=== PATIENT | female | born 1970 | race Caucasian/White ===

== ENCOUNTER → 2017-06-01 | Outpatient (CLI) | payer OTHER ==
[~2017-06-01] VITALS: Ht 152.4 cm; Wt 77.1 kg
[~2017-06-01] MED LIST: ALLEGRA ALLERG180 MG PO; ANAPROX275 MG PO; CIPRO500 MG PO; CLARITIN-D 121 EACH PO; ELAVIL; FLONASE16 GM NS; LEVAQUIN500 MG PO; LEVAQUIN750 MG PO; PAMELOR25 MG; PLAQUINIL; PULMICORT1 MG/2 ML IH; SINGULAIR10 MG PO; ZITHROMAX TRI-500 MG PO; ZYRTEC10 MG PO
== END | disposition home or self-care (01) ==
LOC: PPHC 13:41
DX: B34.9 Viral infection, unspecified (principal); Z01.89 Encounter for other specified special examinations

== ENCOUNTER 2017-06-14 13:04 | Outpatient (CLI) | payer OTHER | END 2017-06-14 13:11 | disposition home or self-care (01) | LOC: MAMO-SONO 13:04 | DX: N60.19 Diffuse cystic mastopathy of unspecified breast (principal); Z12.31 Encounter for screening mammogram for malignant neoplasm of breast ==

== ENCOUNTER 2018-08-08 10:45 | Outpatient (CLI) | payer OTHER | END 2018-08-08 12:00 | disposition home or self-care (01) | LOC: LAB 10:45 | DX: J11.1 Influenza due to unidentified influenza virus with other respiratory manifestations (principal); A49.3 Mycoplasma infection, unspecified site ==

== ENCOUNTER 2018-10-11 12:50 | Outpatient (CLI) | payer OTHER | END 2018-10-11 13:26 | disposition home or self-care (01) | LOC: MAMO-SONO 12:50 | DX: Z12.31 Encounter for screening mammogram for malignant neoplasm of breast (principal) ==

== ENCOUNTER 2019-06-11 09:43 | Outpatient (CLI) | payer OTHER | END 2019-06-11 09:50 | disposition home or self-care (01) | LOC: LAB 09:43 | DX: J11.1 Influenza due to unidentified influenza virus with other respiratory manifestations (principal) ==

== ENCOUNTER 2019-07-10 07:43 | Emergency (ER) | payer OTHER ==
[~2019-07-10] VITALS: Ht 160 cm; Wt 81.6 kg
== END 2019-07-10 11:31 | disposition home or self-care (01) ==
LOC: ER 07:43
DX: B34.9 Viral infection, unspecified (principal)

== ENCOUNTER 2020-01-16 12:33 | Outpatient (CLI) | payer OTHER | END 2020-01-16 12:35 | disposition home or self-care (01) | LOC: MAMO-SONO 12:33 | PROVIDERS: ATTEND Obstetrics & Gynecology Maternal & Fetal Medicine | DX: Z12.31 Encounter for screening mammogram for malignant neoplasm of breast (principal); N63.10 Unspecified lump in the right breast, unspecified quadrant; N63.20 Unspecified lump in the left breast, unspecified quadrant; N64.4 Mastodynia; N60.11 Diffuse cystic mastopathy of right breast ==

== ENCOUNTER → 2020-01-23 | Outpatient (CLI) | payer OTHER | END | disposition home or self-care (01) | LOC: PPH VACUNA 09:00 | DX: Z23 Encounter for immunization (principal) ==

== ENCOUNTER → 2020-05-28 | Outpatient (CLI) | payer OTHER | END | disposition home or self-care (01) | LOC: OFIC 805 11:15 | PROVIDERS: ATTEND Otolaryngology | DX: R09.81 Nasal congestion (principal); J30.89 Other allergic rhinitis; J32.8 Other chronic sinusitis ==

== ENCOUNTER 2020-06-25 08:59 | Outpatient (CLI) | payer OTHER | END 2020-06-25 15:02 | disposition home or self-care (01) | LOC: OFIC 805 08:59 | PROVIDERS: ATTEND Otolaryngology | DX: J32.8 Other chronic sinusitis (principal); J30.89 Other allergic rhinitis; R09.81 Nasal congestion ==

== ENCOUNTER 2020-06-26 12:43 | Outpatient (CLI) | payer OTHER | END 2020-06-26 13:00 | disposition home or self-care (01) | LOC: TOM 12:43 | PROVIDERS: ATTEND Otolaryngology | DX: J30.89 Other allergic rhinitis (principal); J32.0 Chronic maxillary sinusitis ==

== ENCOUNTER 2020-07-15 10:07 | Outpatient (CLI) | payer OTHER | END 2020-07-15 10:12 | disposition home or self-care (01) | LOC: LAB 10:07 | PROVIDERS: ATTEND Internal Medicine Infectious Disease | DX: N39.0 Urinary tract infection, site not specified (principal) ==

== ENCOUNTER 2020-08-18 12:17 | Outpatient (CLI) | payer OTHER ==
[2020-10-14] MEDS ORDERED: DICLOFENAC POTA50 MG PO (13:49)
[2020-10-14] MEDS ORDERED: SKELAXIN800 MG PO (13:50)
== END 2020-08-18 12:19 | disposition home or self-care (01) ==
LOC: LAB 12:17
PROVIDERS: ATTEND Urology
DX: N39.0 Urinary tract infection, site not specified (principal)

== ENCOUNTER 2020-08-20 08:59 | Outpatient (CLI) | payer OTHER ==
[2020-10-14] MEDS ORDERED: DICLOFENAC POTA50 MG PO (13:49)
[2020-10-14] MEDS ORDERED: SKELAXIN800 MG PO (13:50)
== END 2020-08-20 14:46 | disposition home or self-care (01) ==
LOC: SONOGRAMA 08:59
PROVIDERS: ATTEND Urology
DX: N39.0 Urinary tract infection, site not specified (principal)

== ENCOUNTER 2020-12-18 05:55 | Day surgery (SDC) | payer OTHER ==
[~2020-12-18 05:55] MED LIST changes: +DICLOFENAC POTA50 MG PO; +SKELAXIN800 MG PO
== END 2020-12-18 09:40 | disposition home or self-care (01) ==
LOC: AMB-ENDOS 05:55
PROVIDERS: ATTEND Colon & Rectal Surgery
DX: K62.89 Other specified diseases of anus and rectum (principal); K64.1 Second degree hemorrhoids; Z20.822 Contact with and (suspected) exposure to COVID-19

== ENCOUNTER 2021-01-29 16:00 | Outpatient (CLI) | payer OTHER | END 2021-01-29 16:30 | disposition home or self-care (01) | LOC: PPH VACUNA 16:00 | PROVIDERS: ATTEND Emergency Medicine Pediatric Emergency Medicine | DX: Z23 Encounter for immunization (principal) ==

== ENCOUNTER 2021-02-04 10:45 | Outpatient (CLI) | payer OTHER | END 2021-02-04 10:47 | disposition home or self-care (01) | LOC: PPH VACUNA 10:45 | PROVIDERS: ATTEND Emergency Medicine Pediatric Emergency Medicine | DX: Z23 Encounter for immunization (principal) ==

== ENCOUNTER 2021-02-26 12:04 | Outpatient (CLI) | payer OTHER | END 2021-02-26 12:17 | disposition home or self-care (01) | LOC: MAMO-SONO 12:04 | PROVIDERS: ATTEND Radiology Diagnostic Radiology | DX: R92.1 Mammographic calcification found on diagnostic imaging of breast (principal); Z12.31 Encounter for screening mammogram for malignant neoplasm of breast ==

== ENCOUNTER 2021-03-04 08:21 | Inpatient (IN) | payer OTHER ==
[~2021-03-04] VITALS: Ht 160 cm; Wt 61.0 kg
[2021-03-04] MEDS ORDERED: TRANXENE T-TAB7.5 MG PO (08:51)
[2021-03-04] MEDS ORDERED: FLUVOXAMINE MAL50 MG PO (08:52)
[2021-03-04] MEDS ORDERED: HYDROXYCHLOROQ200 MG PO (13:06)
[2021-03-04] MEDS ORDERED: ZYRTEC10 MG PO (13:08)
== END 2021-03-09 13:17 | disposition home or self-care (01) | DRG 690 ==
LOC: ER 08:21 → SEC-K 12:47 → SURH 15:48
PROVIDERS: ADMIT Internal Medicine; ATTEND Internal Medicine
PROC: 8E0ZXY6 Isolation (ICD-10-PCS; principal; 2021-03-04)
PROC: BW4GZZZ Ultrasonography of Pelvic Region (ICD-10-PCS; 2021-03-05)
DX: N39.0 Urinary tract infection, site not specified (principal); Z16.12 Extended spectrum beta lactamase (ESBL) resistance; B96.29 Other Escherichia coli [E. coli] as the cause of diseases classified elsewhere; Z20.822 Contact with and (suspected) exposure to COVID-19; E78.5 Hyperlipidemia, unspecified

== ENCOUNTER 2021-03-29 08:37 | Outpatient (CLI) | payer OTHER ==
[~2021-03-29 08:37] MED LIST changes: +FLUVOXAMINE MAL50 MG PO; +HYDROXYCHLOROQ200 MG PO; +TRANXENE T-TAB7.5 MG PO
== END 2021-03-29 08:38 | disposition home or self-care (01) ==
LOC: LAB 08:37
PROVIDERS: ATTEND Emergency Medicine
DX: N39.0 Urinary tract infection, site not specified (principal)

== ENCOUNTER 2021-05-27 06:59 | Outpatient (CLI) | payer OTHER | END 2021-05-27 07:00 | disposition home or self-care (01) | LOC: LAB 06:59 | PROVIDERS: ATTEND Internal Medicine Rheumatology | DX: M32.19 Other organ or system involvement in systemic lupus erythematosus (principal) ==

== ENCOUNTER 2021-06-09 12:47 | Outpatient (CLI) | payer OTHER | END 2021-06-09 12:52 | disposition home or self-care (01) | LOC: LAB 12:47 | PROVIDERS: ATTEND Internal Medicine | DX: N39.0 Urinary tract infection, site not specified (principal) ==

== ENCOUNTER 2021-09-03 11:56 | Outpatient (CLI) | payer OTHER | END 2021-09-03 12:00 | disposition home or self-care (01) | LOC: SONOGRAMA 11:56 | PROVIDERS: ATTEND Obstetrics & Gynecology Maternal & Fetal Medicine | DX: N60.11 Diffuse cystic mastopathy of right breast (principal); N60.19 Diffuse cystic mastopathy of unspecified breast; N63.0 Unspecified lump in unspecified breast ==

== ENCOUNTER → 2021-09-07 15:02 | Outpatient (CLI) | payer OTHER | END | disposition home or self-care (01) | LOC: LAB 15:02 | PROVIDERS: ATTEND Urology | DX: N30.00 Acute cystitis without hematuria (principal) ==

== ENCOUNTER 2021-09-29 07:42 | Outpatient (CLI) | payer OTHER | END 2021-09-29 14:14 | disposition home or self-care (01) | LOC: LAB 07:42 | PROVIDERS: ATTEND Urology | DX: N30.00 Acute cystitis without hematuria (principal) ==

== ENCOUNTER 2021-12-23 10:10 | Outpatient (CLI) | payer OTHER | END 2021-12-23 10:16 | disposition home or self-care (01) | LOC: LAB 10:10 | PROVIDERS: ATTEND Urology | DX: N30.00 Acute cystitis without hematuria (principal) ==

== ENCOUNTER 2022-01-28 09:07 | Outpatient (CLI) | payer OTHER | END 2022-01-28 09:13 | disposition home or self-care (01) | LOC: LAB 09:07 | PROVIDERS: ATTEND Internal Medicine Cardiovascular Disease | DX: Z03.89 Encounter for observation for other suspected diseases and conditions ruled out (principal) ==

== ENCOUNTER 2022-02-04 08:00 | Outpatient (CLI) | payer OTHER | END 2022-02-04 08:05 | disposition home or self-care (01) | LOC: PPH VACUNA 08:00 | PROVIDERS: ATTEND Emergency Medicine Pediatric Emergency Medicine | DX: Z23 Encounter for immunization (principal) ==

== ENCOUNTER 2022-04-01 12:42 | Outpatient (CLI) | payer OTHER | END 2022-04-01 12:43 | disposition home or self-care (01) | LOC: LAB 12:42 | PROVIDERS: ATTEND Urology | DX: N30.00 Acute cystitis without hematuria (principal) ==

== ENCOUNTER 2022-04-04 10:59 | Outpatient (CLI) | payer OTHER | END 2022-04-04 11:14 | disposition home or self-care (01) | LOC: SONOGRAMA 10:59 | PROVIDERS: ATTEND Surgery | DX: N60.11 Diffuse cystic mastopathy of right breast (principal); N60.12 Diffuse cystic mastopathy of left breast ==

== ENCOUNTER 2022-05-31 13:31 | Outpatient (CLI) | payer OTHER | END 2022-05-31 13:36 | disposition home or self-care (01) | LOC: LAB 13:31 | PROVIDERS: ATTEND Obstetrics & Gynecology Gynecology | DX: N39.0 Urinary tract infection, site not specified (principal) ==

== ENCOUNTER 2022-07-08 08:20 | Outpatient (CLI) | payer OTHER | END 2022-07-08 08:34 | disposition home or self-care (01) | LOC: TOM 08:20 | PROVIDERS: ATTEND Obstetrics & Gynecology Gynecology | DX: N20.0 Calculus of kidney (principal); R10.9 Unspecified abdominal pain ==

== ENCOUNTER 2022-09-09 13:27 | Emergency (ER) | payer OTHER ==
[~2022-09-09] VITALS: Ht 160 cm; Wt 75.3 kg
[2022-09-09] MEDS ORDERED: CLONAZEPAM0.5 M1 PO (13:53)
== END 2022-09-09 15:44 | disposition home or self-care (01) ==
LOC: ER 13:27
DX: I10 Essential (primary) hypertension (principal); F32.89 Other specified depressive episodes; Z88.2 Allergy status to sulfonamides

== ENCOUNTER 2022-10-12 07:48 | Outpatient (CLI) | payer OTHER ==
[~2022-10-12 07:48] MED LIST changes: +CLONAZEPAM0.5 M1 PO
== END 2022-10-12 07:54 | disposition home or self-care (01) ==
LOC: LAB 07:48
PROVIDERS: ATTEND Internal Medicine
DX: F42.9 Obsessive-compulsive disorder, unspecified (principal); N39.0 Urinary tract infection, site not specified; Z13.1 Encounter for screening for diabetes mellitus; Z13.220 Encounter for screening for lipoid disorders; Z13.29 Encounter for screening for other suspected endocrine disorder; E55.9 Vitamin D deficiency, unspecified; M33.19 Other dermatomyositis with other organ involvement; M32.9 Systemic lupus erythematosus, unspecified

== ENCOUNTER 2023-01-06 08:30 | Outpatient (CLI) | payer OTHER | END 2023-01-06 08:40 | disposition home or self-care (01) | LOC: PPH VACUNA 08:30 | PROVIDERS: ATTEND Emergency Medicine Pediatric Emergency Medicine | DX: Z23 Encounter for immunization (principal) ==

== ENCOUNTER 2023-03-06 07:14 | Outpatient (CLI) | payer OTHER ==
[2023-03-06 08:24] LABS: HEMATOCRIT 38.6 % (36.0-45.00); HEMOGLOBIN 13.1 g/dL (12.0-15.00); MEAN CELL VOLUME 81.9 fL (80.00-100.00); MEAN CORPUSCULAR HEMOGLOBIN 27.8 pg (27.00-32.0); PLATELET COUNT 317 K/uL (150-450); RED BLOOD COUNT 4.72 M/uL (4.00-6.00); RED CELL DISTRIBUTION WIDTH 14.2 % (11.5-14.5)
[2023-03-06 08:33] LABS: ERYTHROCYTE SEDIMENTATION RATE 19 mm/hr
[2023-03-06 08:47] LABS: URINE APPEARANCE Cloudy; URINE BILIRRUBIN Negative (NEGATIVE); URINE COLOR Yellow; URINE GLUCOSE Negative (NEGATIVE); URINE LEUKOCYTE Small; URINE NITRATE Positive; URINE PROTEIN Negative (NEGATIVE); URINE UROBILINOGEN 0.2 E.U./dl
[2023-03-06 08:51] LABS: URINE EPITHELIAL CELLS 26.4 uL (0.0-38.8); URINE RBC 54.8 uL (0.0-20.8); URINE WBC 22.7 uL (0.0-23.2)
[2023-03-06 09:06] LABS: URINE BACTERIA > 9821.2 uL (0.0-1933); URINE BLOOD TRACE
[2023-03-06 09:34] LABS: ALBUMIN 3.6 gm/dL (3.4-5.0); BILIRUBIN TOTAL 0.72 mg/dL (0.3-1.2); CALCIUM 8.7 mg/dL (8.5-10.1); CHOL HDL RATIO 4.8 (0-5.0); CREATININE SERUM 0.88 mg/dL (0.55-1.02); FREE TRIODOTIRONINE 2.38 pg/ml (2.18-3.98); GFR 67.22; GLOBULINA 3.4 G/DL (2.4-3.5); POTASSIUM 3.99 mEq/L (3.5-5.1); T4 FREE 1.08 NG/ML (0.76-1.46)
[2023-03-06 09:36] LABS: TSH 0.82 uIU/mL (0.358-3.74)
[2023-03-06 09:49] LABS: C-REACTIVE PROTEIN 0.39 MG/DL (0.00-0.29)
== END 2023-03-06 07:16 | disposition home or self-care (01) ==
LOC: LAB 07:14
PROVIDERS: ATTEND Internal Medicine
DX: N39.0 Urinary tract infection, site not specified (principal); E55.9 Vitamin D deficiency, unspecified; M32.19 Other organ or system involvement in systemic lupus erythematosus; F42.9 Obsessive-compulsive disorder, unspecified; Z88.2 Allergy status to sulfonamides

== ENCOUNTER 2023-06-12 07:24 | Outpatient (CLI) | payer OTHER ==
[2023-06-12 08:04] LABS: HEMATOCRIT 39.9 % (36.0-45.00); HEMOGLOBIN 13.7 g/dL (12.0-15.00); MEAN CELL VOLUME 83.4 fL (80.00-100.00); MEAN CORPUSCULAR HEMOGLOBIN 28.7 pg (27.00-32.0); MEAN CORPUSCULAR HGB CONC 34.5 g/dl (32.0-36.0); PLATELET COUNT 319 K/uL (150-450); RED BLOOD COUNT 4.78 M/uL (4.00-6.00); RED CELL DISTRIBUTION WIDTH 14.1 % (11.5-14.5)
[2023-06-12 08:06] LABS: PH,URINE 6.5 (5.0-8.0); URINE APPEARANCE Cloudy; URINE BILIRRUBIN Negative (NEGATIVE); URINE BLOOD Small; URINE COLOR Yellow; URINE GLUCOSE Negative (NEGATIVE); URINE LEUKOCYTE Large; URINE NITRATE Negative; URINE PROTEIN Negative (NEGATIVE); URINE UROBILINOGEN 0.2 E.U./dl
[2023-06-12 08:08] LABS: URINE EPITHELIAL CELLS 31.6 uL (0.0-38.8); URINE RBC 54.3 uL (0.0-20.8); URINE WBC 276.3 uL (0.0-23.2)
[2023-06-12 08:29] LABS: URINE BACTERIA > 9821.5 uL (0.0-1933)
[2023-06-12 08:30] LABS: ERYTHROCYTE SEDIMENTATION RATE 15 mm/hr
[2023-06-12 08:33] LABS: URINE EPITHELIAL CELLS 0-4 /HPF
[2023-06-12 08:55] LABS: ALKALINE PHOSPHATASE 77 U/L (50-136); ALT/SGPT 21 U/L (12-78); ANION GAP 7 (10.0-20.0); AST/SGOT 16 U/L (15-37); BILIRUBIN TOTAL 0.56 mg/dL (0.3-1.2); BLOOD UREA NITROGEN 15 mg/dL (7-18); BUN CREA RATIO 17 (7.0-25.0); CALCIUM 9.4 mg/dL (8.5-10.1); CARBON DIOXIDE 30 mEq/L (21-32); CHLORIDE 107 mmol/L (98-107); CREATININE SERUM 0.89 mg/dL (0.55-1.02); FREE TRIODOTIRONINE 2.41 pg/ml (2.18-3.98); GFR 66.35; GLOBULINA 3.3 G/DL (2.4-3.5); GLUCOSE FASTING 104 mg/dL (65-100); HDL 53 mg/dl (40-60); OSMOLALITY SERUM 281 MOSM/KG (275-295); POTASSIUM 4.19 mEq/L (3.5-5.1); SODIUM 140 mmol/L (136-145); T4 TOTAL 10.67 UG/DL (4.8-13.9); TOTAL PROTEIN 7.3 gm/dL (6.4-8.2); TRIGLYCERIDES 97 mg/dL (0-150); VLDL 19 (0-39)
[2023-06-12 08:57] LABS: C-REACTIVE PROTEIN < 0.29 MG/DL (0.00-0.29); CHOL HDL RATIO 4.9 (0-5.0); CHOLESTEROL 258 mg/dL (0-200); LDL 186 mg/dl (0-130)
[2023-06-13 10:11] LABS: COMPLEMENT C3 135 mg/dL (82-167); COMPLEMENT C4 22 mg/dL (12-38)
[2023-06-13 16:07] LABS: DNA AB DOUBLE STRABDED < 1 IU/mL (0-9)
== END 2023-06-12 07:25 | disposition home or self-care (01) ==
LOC: LAB 07:24
PROVIDERS: ATTEND Internal Medicine
DX: M32.19 Other organ or system involvement in systemic lupus erythematosus (principal); R76.0 Raised antibody titer; F42.9 Obsessive-compulsive disorder, unspecified; N39.0 Urinary tract infection, site not specified; E78.9 Disorder of lipoprotein metabolism, unspecified; E03.9 Hypothyroidism, unspecified

== ENCOUNTER 2023-12-18 07:26 | Outpatient (CLI) | payer OTHER ==
[2023-12-18 08:06] LABS: HEMATOCRIT 38.2 % (36.0-45.00); MEAN CELL VOLUME 83.5 fL (80.00-100.00); MEAN CORPUSCULAR HEMOGLOBIN 28.4 pg (27.00-32.0); PLATELET COUNT 317 K/uL (150-450); RED BLOOD COUNT 4.57 M/uL (4.00-6.00); RED CELL DISTRIBUTION WIDTH 13.9 % (11.5-14.5)
[2023-12-18 08:14] LABS: ERYTHROCYTE SEDIMENTATION RATE 21 mm/hr
[2023-12-18 08:59] LABS: URINE APPEARANCE Cloudy; URINE BILIRRUBIN Negative (NEGATIVE); URINE BLOOD NHT; URINE COLOR Yellow; URINE GLUCOSE Negative (NEGATIVE); URINE KETONE Negative (NEGATIVE); URINE LEUKOCYTE Moderate; URINE NITRATE Positive; URINE PROTEIN Negative (NEGATIVE); URINE UROBILINOGEN 0.2 E.U./dl
[2023-12-18 09:03] LABS: URINE EPITHELIAL CELLS 21.4 uL (0.0-38.8); URINE RBC 49.6 uL (0.0-20.8); URINE WBC 539.8 uL (0.0-23.2)
[2023-12-18 09:18] LABS: URINE BACTERIA > 9821 uL (0.0-1933)
[2023-12-18 09:32] LABS: ALBUMIN 3.8 gm/dL (3.4-5.0); ALKALINE PHOSPHATASE 74 U/L (50-136); ALT/SGPT 18 U/L (12-78); ANION GAP 9 (10.0-20.0); AST/SGOT 15 U/L (15-37); BILIRUBIN TOTAL 0.62 mg/dL (0.3-1.2); BLOOD UREA NITROGEN 10 mg/dL (7-18); BUN CREA RATIO 13 (7.0-25.0); CARBON DIOXIDE 27 mEq/L (21-32); CHLORIDE 110 mmol/L (98-107); CREATININE SERUM 0.78 mg/dL (0.55-1.02); FREE TRIODOTIRONINE 2.46 pg/ml (2.18-3.98); GFR 76.96; GLOBULINA 3.4 G/DL (2.4-3.5); GLUCOSE FASTING 100 mg/dL (65-100); HDL 54 mg/dl (40-60); OSMOLALITY SERUM 282 MOSM/KG (275-295); POTASSIUM 4.11 mEq/L (3.5-5.1); SODIUM 142 mmol/L (136-145); T4 TOTAL 10.27 UG/DL (4.8-13.9); TOTAL PROTEIN 7.2 gm/dL (6.4-8.2); TRIGLYCERIDES 125 mg/dL (0-150); VLDL 25 (0-39)
[2023-12-18 09:36] LABS: CHOL HDL RATIO 4.9 (0-5.0); LDL 184 mg/dl (0-130)
[2023-12-18 09:37] LABS: C-REACTIVE PROTEIN < 0.29 MG/DL (0.00-0.29); CHOLESTEROL 263 mg/dL (0-200)
== END 2023-12-18 07:30 | disposition home or self-care (01) ==
LOC: LAB 07:26
PROVIDERS: ATTEND Internal Medicine
DX: N39.0 Urinary tract infection, site not specified (principal); R76.0 Raised antibody titer; Z13.1 Encounter for screening for diabetes mellitus; Z13.220 Encounter for screening for lipoid disorders; Z13.29 Encounter for screening for other suspected endocrine disorder; F42.9 Obsessive-compulsive disorder, unspecified; E78.9 Disorder of lipoprotein metabolism, unspecified; E03.9 Hypothyroidism, unspecified

== ENCOUNTER 2023-12-19 07:23 | Outpatient (CLI) | payer OTHER ==
[2023-12-19 08:25] LABS: HEMATOCRIT 37.3 % (36.0-45.00); HEMOGLOBIN 12.8 g/dL (12.0-15.00); MEAN CELL VOLUME 82.4 fL (80.00-100.00); MEAN CORPUSCULAR HEMOGLOBIN 28.2 pg (27.00-32.0); MEAN CORPUSCULAR HGB CONC 34.2 g/dl (32.0-36.0); PLATELET COUNT 317 K/uL (150-450); RED BLOOD COUNT 4.53 M/uL (4.00-6.00); RED CELL DISTRIBUTION WIDTH 14.2 % (11.5-14.5)
[2023-12-19 09:04] LABS: ALBUMIN 3.9 gm/dL (3.4-5.0); BILIRUBIN TOTAL 0.67 mg/dL (0.3-1.2); CALCIUM 9.1 mg/dL (8.5-10.1); CREATININE SERUM 0.79 mg/dL (0.55-1.02); GFR 75.84; GLOBULINA 3.4 G/DL (2.4-3.5); POTASSIUM 4.03 mEq/L (3.5-5.1); TOTAL PROTEIN 7.3 gm/dL (6.4-8.2)
== END 2023-12-19 07:30 | disposition home or self-care (01) ==
LOC: LAB 07:23
PROVIDERS: ATTEND Internal Medicine
DX: N39.0 Urinary tract infection, site not specified (principal)

== ENCOUNTER 2023-12-25 11:50 | Outpatient (CLI) | payer OTHER | END 2023-12-25 15:22 | disposition home or self-care (01) | LOC: LAB 11:50 | DX: Z20.828 Contact with and (suspected) exposure to other viral communicable diseases (principal); J11.1 Influenza due to unidentified influenza virus with other respiratory manifestations ==

== ENCOUNTER 2024-01-10 07:46 | Outpatient (CLI) | payer OTHER | END 2024-01-10 11:44 | disposition home or self-care (01) | LOC: LAB 07:46 | DX: J11.1 Influenza due to unidentified influenza virus with other respiratory manifestations (principal); Z20.828 Contact with and (suspected) exposure to other viral communicable diseases ==

== ENCOUNTER 2024-01-10 10:40 | Outpatient (CLI) | payer OTHER | END 2024-01-10 10:44 | disposition home or self-care (01) | LOC: LAB 10:40 | PROVIDERS: ATTEND Internal Medicine | DX: J06.9 Acute upper respiratory infection, unspecified (principal) ==

== ENCOUNTER 2024-02-19 13:59 | Outpatient (CLI) | payer OTHER | END 2024-02-19 14:00 | disposition home or self-care (01) | LOC: LAB 13:59 | PROVIDERS: ATTEND Preventive Medicine Occupational Medicine | DX: J11.1 Influenza due to unidentified influenza virus with other respiratory manifestations (principal); Z20.828 Contact with and (suspected) exposure to other viral communicable diseases ==

== ENCOUNTER 2024-03-11 07:39 | Outpatient (CLI) | payer OTHER ==
[2024-03-11 08:25] LABS: HEMATOCRIT 39.5 % (36.0-45.00); HEMOGLOBIN 13.2 g/dL (12.0-15.00); MEAN CELL VOLUME 84.2 fL (80.00-100.00); MEAN CORPUSCULAR HEMOGLOBIN 28.2 pg (27.00-32.0); MEAN CORPUSCULAR HGB CONC 33.5 g/dl (32.0-36.0); PLATELET COUNT 300 K/uL (150-450); RED BLOOD COUNT 4.69 M/uL (4.00-6.00); RED CELL DISTRIBUTION WIDTH 14.4 % (11.5-14.5)
[2024-03-11 08:28] LABS: URINE APPEARANCE Clear; URINE BILIRRUBIN Negative (NEGATIVE); URINE BLOOD Small; URINE COLOR Yellow; URINE GLUCOSE Negative (NEGATIVE); URINE KETONE Negative (NEGATIVE); URINE LEUKOCYTE Trace; URINE NITRATE Negative; URINE PROTEIN Negative (NEGATIVE); URINE UROBILINOGEN 0.2 E.U./dl
[2024-03-11 08:32] LABS: ERYTHROCYTE SEDIMENTATION RATE 7 mm/hr
[2024-03-11 08:35] LABS: URINE BACTERIA 337.6 uL (0.0-1933); URINE EPITHELIAL CELLS 37.5 uL (0.0-38.8); URINE RBC 11.1 uL (0.0-20.8)
[2024-03-11 08:37] LABS: URINE CAST 0.15 uL (0.0-1.40)
[2024-03-11 09:07] LABS: ALBUMIN 3.7 gm/dL (3.4-5.0); ALKALINE PHOSPHATASE 72 U/L (50-136); ALT/SGPT 19 U/L (12-78); ANION GAP 9 (10.0-20.0); AST/SGOT 14 U/L (15-37); BILIRUBIN TOTAL 0.36 mg/dL (0.3-1.2); BLOOD UREA NITROGEN 13 mg/dL (7-18); BUN CREA RATIO 16 (7.0-25.0); CARBON DIOXIDE 28 mEq/L (21-32); CHLORIDE 110 mmol/L (98-107); GFR 74.75; GLOBULINA 3.3 G/DL (2.4-3.5); GLUCOSE FASTING 95 mg/dL (65-100); HDL 65 mg/dl (40-60); OSMOLALITY SERUM 285 MOSM/KG (275-295); POTASSIUM 3.99 mEq/L (3.5-5.1); SODIUM 143 mmol/L (136-145); T4 TOTAL 11.59 UG/DL (4.8-13.9); TRIGLYCERIDES 78 mg/dL (0-150); VLDL 15 (0-39)
[2024-03-11 09:08] LABS: C-REACTIVE PROTEIN < 0.29 MG/DL (0.00-0.29); CHOLESTEROL 257 mg/dL (0-200); LDL 176 mg/dl (0-130)
== END 2024-03-11 07:40 | disposition home or self-care (01) ==
LOC: LAB 07:39
PROVIDERS: ATTEND Internal Medicine
DX: N39.0 Urinary tract infection, site not specified (principal); Z13.29 Encounter for screening for other suspected endocrine disorder; Z13.220 Encounter for screening for lipoid disorders; Z13.1 Encounter for screening for diabetes mellitus; R76.0 Raised antibody titer

== ENCOUNTER 2024-07-03 09:13 | Outpatient (CLI) | payer OTHER ==
[2024-07-03 10:12] LABS: HEMATOCRIT 38.7 % (36.0-45.00); HEMOGLOBIN 13.1 g/dL (12.0-15.00); MEAN CELL VOLUME 83.7 fL (80.00-100.00); MEAN CORPUSCULAR HEMOGLOBIN 28.4 pg (27.00-32.0); MEAN CORPUSCULAR HGB CONC 33.9 g/dl (32.0-36.0); PLATELET COUNT 301 K/uL (150-450); RED BLOOD COUNT 4.63 M/uL (4.00-6.00); RED CELL DISTRIBUTION WIDTH 13.8 % (11.5-14.5)
[2024-07-03 10:58] LABS: ALBUMIN 3.7 gm/dL (3.4-5.0); BILIRUBIN TOTAL 0.29 mg/dL (0.3-1.2); CALCIUM 9.2 mg/dL (8.5-10.1); CREATININE SERUM 0.7 mg/dL (0.55-1.02); GFR 87.2; GLOBULINA 3.2 G/DL (2.4-3.5); POTASSIUM 4.32 mEq/L (3.5-5.1); TOTAL PROTEIN 6.9 gm/dL (6.4-8.2)
[2024-07-03 11:26] LABS: MYCOPLASMA PNEUMONIAE IGM NON REACTIVE (NO REACTIVE)
== END 2024-07-03 13:30 | disposition home or self-care (01) ==
LOC: LAB 09:13
PROVIDERS: ATTEND Internal Medicine
DX: J11.1 Influenza due to unidentified influenza virus with other respiratory manifestations (principal); R50.9 Fever, unspecified; Z20.822 Contact with and (suspected) exposure to COVID-19; U07.1 COVID-19

== ENCOUNTER 2024-07-23 07:46 | Outpatient (CLI) | payer OTHER ==
[2024-07-23 08:30] LABS: PH,URINE 5.5 (5.0-8.0); URINE BILIRRUBIN Negative (NEGATIVE); URINE BLOOD Trace; URINE COLOR Yellow; URINE GLUCOSE Negative (NEGATIVE); URINE KETONE Negative (NEGATIVE); URINE LEUKOCYTE Moderate; URINE NITRATE Negative; URINE PROTEIN Negative (NEGATIVE); URINE UROBILINOGEN 0.2 E.U./dl
[2024-07-23 08:34] LABS: HEMATOCRIT 39.4 % (36.0-45.00); HEMOGLOBIN 13.2 g/dL (12.0-15.00); MEAN CELL VOLUME 83.7 fL (80.00-100.00); MEAN CORPUSCULAR HGB CONC 33.4 g/dl (32.0-36.0); PLATELET COUNT 308 K/uL (150-450); RED BLOOD COUNT 4.71 M/uL (4.00-6.00); URINE EPITHELIAL CELLS 10.9 uL (0.0-38.8); URINE RBC 5.1 uL (0.0-20.8); URINE WBC 177.4 uL (0.0-23.2)
[2024-07-23 08:37] LABS: URINE BACTERIA > 9821.5 uL (0.0-1933); URINE CAST 0.29 uL (0.0-1.40)
[2024-07-23 08:39] LABS: URINE APPEARANCE Clear
[2024-07-23 09:36] LABS: ALBUMIN 3.9 gm/dL (3.4-5.0); BILIRUBIN TOTAL 0.48 mg/dL (0.3-1.2); CHOL HDL RATIO 4.4 (0-5.0); CREATININE SERUM 0.66 mg/dL (0.55-1.02); GFR 93.33; POTASSIUM 4.25 mEq/L (3.5-5.1); T4 TOTAL 9.97 UG/DL (4.8-13.9); TOTAL PROTEIN 6.9 gm/dL (6.4-8.2); TSH 1.08 uIU/mL (0.358-3.74)
[2024-07-24 09:05] LABS: INSULIN LEVELS 10.9 uIU/mL (2.6-24.9)
[2024-07-24 15:19] LABS: T3 TOTAL 0.807 ng/ml (0.846-2.02); VITAMIN D3 25 HYDROXY 28.38 ng/ml (30-120)
[2024-07-25 17:06] LABS: CALCITONIN < 2.0 pg/mL (0.0-5.0)
== END 2024-07-23 07:49 | disposition home or self-care (01) ==
LOC: LAB 07:46
PROVIDERS: ATTEND Internal Medicine
DX: E11.9 Type 2 diabetes mellitus without complications (principal); E34.9 Endocrine disorder, unspecified; E07.9 Disorder of thyroid, unspecified; E55.9 Vitamin D deficiency, unspecified; E78.5 Hyperlipidemia, unspecified; N30.00 Acute cystitis without hematuria; I10 Essential (primary) hypertension

== ENCOUNTER 2024-10-29 09:52 | Emergency (ER) | payer OTHER ==
[~2024-10-29] VITALS: Ht 160 cm; Wt 77.1 kg
[2024-10-29 10:24] VITALS: BP 153/91; O2SAT 99
[2024-10-29] MEDS ORDERED: CLONAZEPAM1 MG PO (10:31)
[2024-10-29] MEDS ORDERED: NEOMYCIN/BACITRACIN/POLYMYXINB 3.5 GM OINT..GM. OP ONE (10:45)
== END 2024-10-29 10:52 | disposition home or self-care (01) ==
LOC: ER 09:52
DX: H10.10 Acute atopic conjunctivitis, unspecified eye (principal); Z88.1 Allergy status to other antibiotic agents

== ENCOUNTER 2024-11-13 12:53 | Outpatient (CLI) | payer OTHER ==
[~2024-11-13 12:53] MED LIST changes: +CLONAZEPAM1 MG PO
[2024-11-13 13:35] LABS: COVID-19 AG NEGATIVE (NEGATIVE)
== END 2024-11-13 12:54 | disposition home or self-care (01) ==
LOC: LAB 12:53
PROVIDERS: ATTEND Preventive Medicine Occupational Medicine
DX: J11.1 Influenza due to unidentified influenza virus with other respiratory manifestations (principal); Z20.828 Contact with and (suspected) exposure to other viral communicable diseases

== ENCOUNTER 2024-11-15 06:47 | Outpatient (CLI) | payer OTHER ==
[2024-11-15 07:40] LABS: COVID-19 AG NEGATIVE (NEGATIVE)
== END 2024-11-15 06:48 | disposition home or self-care (01) ==
LOC: LAB 06:47
PROVIDERS: ATTEND Preventive Medicine Occupational Medicine
DX: J11.1 Influenza due to unidentified influenza virus with other respiratory manifestations (principal); Z20.828 Contact with and (suspected) exposure to other viral communicable diseases

== ENCOUNTER 2024-12-03 07:08 | Outpatient (CLI) | payer OTHER ==
[2024-12-03 07:50] LABS: BASO % 0.8 % (0.1-1.2); EOS # 0.13 (0.04-0.54); EOS % 1.5 % (0.7-7.0); LYMPH # 2.13 (1.18-3.74); LYMPH % 25.4 % (19.3-53.1); MEAN PLATELET VOLUME 10.50 fl (9.4-12.4); MONO # 0.59 (0.24-0.82); MONO % 7.0 % (4.7-12.5); NEUT # 5.45 (1.56-6.13); NEUT % 64.9 % (34.0-71.1); RED CELL DISTRIBUTION WIDTH 13.3 % (11.6-14.4)
[2024-12-03 08:11] LABS: ERYTHROCYTE SEDIMENTATION RATE 14 mm/hr (0-30)
[2024-12-03 09:04] LABS: ALT/SGPT 21 U/L (12-78); AST/SGOT 12 U/L (15-37); BILIRUBIN TOTAL 0.55 mg/dL (0.3-1.2); BUN CREA RATIO 13 (7.0-25.0); CHOL HDL RATIO 4.4 (0-5.0); CREATININE SERUM 0.78 mg/dL (0.55-1.02); FREE TRIODOTIRONINE 2.52 pg/ml (2.18-3.98); GFR 76.68; GLOBULINA 3.1 G/DL (2.4-3.5); GLUCOSE FASTING 90 mg/dL (65-100); HDL 52 mg/dl (40-60); LDL 151 mg/dl (0-130); OSMOLALITY SERUM 280 MOSM/KG (275-295); T4 TOTAL 11.32 UG/DL (4.8-13.9); TSH 1.700 uIU/mL (0.358-3.74); VLDL 26 (0-39)
== END 2024-12-03 07:13 | disposition home or self-care (01) ==
LOC: LAB 07:08
PROVIDERS: ATTEND Internal Medicine
DX: N39.0 Urinary tract infection, site not specified (principal); R76.0 Raised antibody titer; Z13.1 Encounter for screening for diabetes mellitus; Z13.29 Encounter for screening for other suspected endocrine disorder; E78.9 Disorder of lipoprotein metabolism, unspecified

== ENCOUNTER 2025-01-16 07:11 | Outpatient (CLI) | payer OTHER ==
[2025-01-17 07:10] LABS: HEPATITIS A ANTIBODY IGG Negative (Negative); HEPATITIS B SURFACE ANTIBODY Reactive (.); HEPATITIS C VIRUS ANTIBODY Non Reactive (Non Reactive)
== END 2025-01-16 07:15 | disposition home or self-care (01) ==
LOC: LAB 07:11
PROVIDERS: ATTEND Internal Medicine Infectious Disease
DX: A64 Unspecified sexually transmitted disease (principal); B19.10 Unspecified viral hepatitis B without hepatic coma

== ENCOUNTER 2025-01-28 06:21 | Outpatient (CLI) | payer OTHER ==
[2025-01-28 07:20] LABS: BASO % 0.7 % (0.1-1.2); EOS # 0.16 (0.04-0.54); EOS % 1.7 % (0.7-7.0); LYMPH # 1.63 (1.18-3.74); LYMPH % 16.9 % (19.3-53.1); MEAN PLATELET VOLUME 10.40 fl (9.4-12.4); MONO # 0.79 (0.24-0.82); MONO % 8.2 % (4.7-12.5); NEUT # 6.94 (1.56-6.13); NEUT % 72.1 % (34.0-71.1); RED CELL DISTRIBUTION WIDTH 13.5 % (11.6-14.4)
== END 2025-01-28 06:26 | disposition home or self-care (01) ==
LOC: LAB 06:21
PROVIDERS: ATTEND Internal Medicine
DX: N39.0 Urinary tract infection, site not specified (principal); Z88.2 Allergy status to sulfonamides

== ENCOUNTER 2025-02-18 06:43 | Outpatient (CLI) | payer OTHER ==
[2025-02-18 07:46] LABS: URINE APPEARANCE Clear; URINE BILIRRUBIN Negative (NEGATIVE); URINE BLOOD Small; URINE COLOR Yellow; URINE GLUCOSE Negative (NEGATIVE); URINE KETONE Negative (NEGATIVE); URINE LEUKOCYTE Trace; URINE NITRATE Negative; URINE PROTEIN Negative (NEGATIVE); URINE UROBILINOGEN 0.2 E.U./dl
[2025-02-18 07:51] LABS: URINE BACTERIA 8.3 uL (0.0-1933); URINE EPITHELIAL CELLS 2.1 uL (0.0-38.8); URINE RBC 8.6 uL (0.0-20.8); URINE WBC 5.7 uL (0.0-23.2)
[2025-02-18 07:56] LABS: URINE CAST 0.00 uL (0.0-1.40)
== END 2025-02-18 06:45 | disposition home or self-care (01) ==
LOC: LAB 06:43
PROVIDERS: ATTEND Internal Medicine Infectious Disease
DX: N39.0 Urinary tract infection, site not specified (principal); Z16.12 Extended spectrum beta lactamase (ESBL) resistance

== ENCOUNTER → 2025-02-22 09:48 | Outpatient (CLI) | payer OTHER | END | disposition home or self-care (01) | LOC: LAB 09:48 | PROVIDERS: ATTEND Internal Medicine | DX: N39.0 Urinary tract infection, site not specified (principal) ==

== ENCOUNTER 2025-02-26 07:08 | Inpatient (IN) | payer OTHER ==
[~2025-02-26] VITALS: Ht 162.6 cm; Wt 79.4 kg
--- NOTE | 2025-02-26 07:41 | NUR ---
PACIENTE ALERTA Y ORIENTADA X3. REFIERE VENIR POR ORDEN MEDICA DE DR. MICHEL BLANCA PARA ADMISION POR INFECCION DE ORINA. SE JENISE S/V Y SE UBICA.
[2025-02-26] MEDS ORDERED: SODIUM CHLORIDE 0.45 % 1,000 ML IV SCH (07:45)
[2025-02-26] MEDS ORDERED: ENALAPRILAT DIHYDRATE 1.25 MG/ML VIAL IV PRN (07:45)
[2025-02-26] MEDS ORDERED: ONDANSETRON HCL 2 MG/ML VIAL IV PRN (07:45)
[2025-02-26] MEDS ORDERED: FAMOTIDINE/PF 20 MG/2 ML VIAL IV PUSH SCH (09:00)
[2025-02-26] MEDS ORDERED: PATIENTS OWN MEDICATION (MEDICAMENTO EN PISO) PO SCH (09:00)
[2025-02-26] MEDS ORDERED: LACTOBACILLUS ACIDOPHILUS 1 CAP CAP PO SCH (09:00)
[2025-02-26] MEDS ORDERED: CLONAZEPAM 1 MG TABLET PO SCH ×2 (09:00→21:00)
[2025-02-26] MEDS ORDERED: ENOXAPARIN SODIUM 40 MG/0.4 ML SYRINGE SUBCUTANEO SCH (09:00)
[2025-02-26 10:17] VITALS: BP 158/82
[2025-02-26] MEDS ORDERED: MEROPENEM 500 MG in 0.9 % SODIUM CHLORIDE 50 ML IV SCH (12:00)
[2025-02-26 14:39] VITALS: BP 158/87; O2SAT 100
[2025-02-26 17:59] VITALS: BP 137/86
[2025-02-27 03:26] VITALS: BP 115/64; O2SAT 98
[2025-02-27 06:45] LABS: BASO % 0.8 % (0.1-1.2); EOS # 0.14 (0.04-0.54); EOS % 1.6 % (0.7-7.0); LYMPH # 2.22 (1.18-3.74); LYMPH % 24.9 % (19.3-53.1); MEAN PLATELET VOLUME 10.70 fl (9.4-12.4); MONO # 0.78 (0.24-0.82); MONO % 8.7 % (4.7-12.5); NEUT # 5.68 (1.56-6.13); NEUT % 63.7 % (34.0-71.1); RED CELL DISTRIBUTION WIDTH 13.9 % (11.6-14.4)
[2025-02-27 07:20] LABS: ALT/SGPT 20 U/L (12-78); AST/SGOT 13 U/L (15-37); BILIRUBIN TOTAL 0.50 mg/dL (0.3-1.2); BILIRUBIN,CONJUGATED 0.12 mg/dL (0.0-0.2); BUN CREA RATIO 18 (7.0-25.0); CREATININE SERUM 0.74 mg/dL (0.55-1.02); GFR 81.48; GLUCOSE FASTING 91 mg/dL (65-100); OSMOLALITY SERUM 287 MOSM/KG (275-295); T4 FREE 1.19 NG/ML (0.76-1.46); TSH 2.040 uIU/mL (0.358-3.74)
[2025-02-27 07:22] LABS: INR 1.02
[2025-02-27 07:35] LABS: ERYTHROCYTE SEDIMENTATION RATE 14 mm/hr (0-30)
[2025-02-27 10:13] LABS: URINE APPEARANCE Clear; URINE BACTERIA 35.9 uL (0.0-1933); URINE BILIRRUBIN Negative (NEGATIVE); URINE BLOOD Small; URINE COLOR Yellow; URINE EPITHELIAL CELLS 11.8 uL (0.0-38.8); URINE GLUCOSE Negative (NEGATIVE); URINE KETONE Negative (NEGATIVE); URINE LEUKOCYTE Moderate; URINE NITRATE Negative; URINE PROTEIN Negative (NEGATIVE); URINE RBC 6.5 uL (0.0-20.8); URINE UROBILINOGEN 0.2 E.U./dl; URINE WBC 165.3 uL (0.0-23.2)
[2025-02-27 10:17] LABS: URINE CAST 0.00 uL (0.0-1.40)
[2025-02-27 10:20] VITALS: BP 147/78; O2SAT 98
[2025-02-28 03:44] VITALS: BP 104/66; O2SAT 98
[2025-02-28] MEDS ORDERED: INTESTINEX680 M1 PO (07:26)
[2025-02-28] MEDS ORDERED: ERTAPENEM SODIUM 1,000 MG in 0.9 % SODIUM CHLORIDE 50 ML IV SCH (09:00)
[2025-02-28 09:28] VITALS: BP 130/84; O2SAT 99
== END 2025-02-28 15:39 | disposition home or self-care (01) | DRG 690 ==
LOC: ER 07:08 → MEDJ 08:40 → SEC-K 08:40 → MEDJ 12:37
PROVIDERS: ADMIT Internal Medicine; ATTEND Internal Medicine
PROC: BW4GZZZ Ultrasonography of Pelvic Region (ICD-10-PCS; principal; 2025-02-26)
PROC: 8E0ZXY6 Isolation (ICD-10-PCS; 2025-02-26)
DX: N39.0 Urinary tract infection, site not specified (principal); Z16.12 Extended spectrum beta lactamase (ESBL) resistance; R30.0 Dysuria; H10.10 Acute atopic conjunctivitis, unspecified eye; B96.20 Unspecified Escherichia coli [E. coli] as the cause of diseases classified elsewhere

== ENCOUNTER → 2025-03-10 08:12 | Outpatient (CLI) | payer OTHER ==
[~2025-03-10 08:12] MED LIST changes: +INTESTINEX680 M1 PO
[2025-03-10 09:15] LABS: BASO % 0.9 % (0.1-1.2); EOS # 0.22 (0.04-0.54); EOS % 3.3 % (0.7-7.0); LYMPH # 1.68 (1.18-3.74); LYMPH % 25.3 % (19.3-53.1); MEAN PLATELET VOLUME 10.40 fl (9.4-12.4); MONO # 0.43 (0.24-0.82); MONO % 6.5 % (4.7-12.5); NEUT # 4.24 (1.56-6.13); NEUT % 63.7 % (34.0-71.1); RED CELL DISTRIBUTION WIDTH 13.4 % (11.6-14.4)
[2025-03-10 09:16] LABS: URINE APPEARANCE Clear; URINE BILIRRUBIN Negative (NEGATIVE); URINE BLOOD Small; URINE COLOR Yellow; URINE GLUCOSE Negative (NEGATIVE); URINE KETONE Negative (NEGATIVE); URINE LEUKOCYTE Negative; URINE NITRATE Negative; URINE PROTEIN Negative (NEGATIVE); URINE UROBILINOGEN 0.2 E.U./dl
[2025-03-10 09:18] LABS: URINE RBC 8.2 uL (0.0-20.8)
[2025-03-10 09:41] LABS: URINE BACTERIA 0 uL (0.0-1933); URINE CAST 0.00 uL (0.0-1.40); URINE EPITHELIAL CELLS 1.2 uL (0.0-38.8); URINE WBC 0.7 uL (0.0-23.2)
[2025-03-10 10:10] LABS: ALT/SGPT 26.0 U/L (12-78); AST/SGOT 17.0 U/L (15-37); BILIRUBIN TOTAL 0.45 mg/dL (0.3-1.2); BUN CREA RATIO 15.0 (7.0-25.0); CREATININE SERUM 0.73 mg/dL (0.55-1.02); GFR 82.77; GLOBULINA 3.3 G/DL (2.4-3.5); GLUCOSE FASTING 99.0 mg/dL (65-100); OSMOLALITY SERUM 286.0 MOSM/KG (275-295)
== END | disposition home or self-care (01) ==
LOC: LAB 08:12
PROVIDERS: ATTEND Internal Medicine
DX: N39.0 Urinary tract infection, site not specified (principal)